=== PATIENT | female | born 1960 | race Caucasian/White ===

== ENCOUNTER 2016-08-27 19:27 | Inpatient (IN) | payer OTHER ==
[~2016-08-27] VITALS: Ht 154.9 cm; Wt 59.1 kg
[2016-08-27] MEDS ORDERED: VIT D PO (19:47)
[2016-08-27] MEDS ORDERED: HYDR200T3 PO (19:47)
[2016-08-27] MEDS ORDERED: FOLI1TAB2 PO (19:47)
[2016-08-27] MEDS ORDERED: LISI-542 PO (19:47)
[2016-08-27] MEDS ORDERED: OMEP40CA2 PO (19:47)
[2016-08-27] MEDS ORDERED: HUMI40KI SC (19:47)
[2016-08-27] MEDS ORDERED: METH2.5TA PO (19:47)
[2016-08-27] MEDS ORDERED: CALCIUM PO (19:47)
[2016-08-27] MEDS ORDERED: HYDR12CA PO (19:47)
[2016-08-27] MEDS ORDERED: MORPHINE 4 MG/ML 1ML SYRINGE IV ONE (20:15)
--- NOTE | 2016-08-27 20:27 | REP ---
Clinical: Trauma . Findings: Age-related changes are appreciated. The ventricles and sulci are symmetric. Almeida-white differentiation is maintained. There is no evidence for acute intracranial hemorrhage, mass/mass effect, pathology or infarction. No extra-axial fluid collection. Calvarium is intact. Near complete opacification of the ethmoid sinuses along with fluid level in the right maxillary sinus and sphenoid sinuses. Frontal sinuses and mastoid air cells are clear. There is a supraorbital/frontal scalp hematoma. Impression: Left supraorbital hematoma. Sinus opacification is nonspecific. Age related changes. No acute intracranial hemorrhage, infarction, or mass/mass effect. Signed by Marcos Cruz MD 08/27/2016 08:18 P
--- NOTE | 2016-08-27 20:37 | REP ---
Clinical: Trauma. Technique: AP, lateral, bilateral oblique views of the left wrist. Findings: There is a comminuted Nova's fracture of the distal radial metaphysis along with ulnar styloid fracture and overlying soft tissue swelling. Underlying osteopenia and degenerative changes noted. Impression: Comminuted Nova's fracture of the distal radius with ulnar styloid fracture and overlying soft tissue swelling. Signed by Marcos Cruz MD 08/27/2016 08:28 P
[2016-08-27] MEDS ORDERED: LIDOCAINE 1% MDV 20ML VIAL As Ordered ONE (21:47)
[2016-08-27] MEDS ORDERED: CALCTAB41 PO (23:12)
--- NOTE | 2016-08-28 00:30 | REPUSA ---
CLINICAL HISTORY: Pain. TECHNIQUE: Multiple axial CT images were obtained without IV contrast material. MPR coronal and sagit george sequences are obtained. COMMENTS: Heterogeneous osteopenia of visualized bones. Acute comminuted displaced intra-articular fracture of the distal radial metaphysis. Associated anter ior/palmar displacement and angulation. Acute displaced fracture of the ulna styloid process. Acute mildly displaced fracture of the most posterior/dorsal aspect of the lunate. Widening of the scapholunate space suggestive of injury of the scapholunate ligament. Diffuse soft tissue edema and swelling. IMPRESSION: Osteopenia. Displaced fracture of the ulna, radius and lunate. Thank you for your kind referral of this patient.
[2016-08-28 00:36] LABS: BASO % 0.3 % (0.0-1.0); EOS # 0.2 K/mm3 (0.0-0.50); EOS % 1.7 % (0.0-3.0); LARGE UNSTAINED CELL # 0.3 K/mm3 (0.0-0.4); LARGE UNSTAINED CELL % 2.8 % (0.0-4.0); LYMPH # 1.9 K/mm3 (1.5-4.5); LYMPH % 20.4 % (24.0-44.0); MEAN CORPUSCULAR HEMOGLOBIN 34.4 pg (27.0-33.0); MEAN CORPUSCULAR HGB CONC 34.7 g/dl (32.0-36.5); MONO # 0.5 K/mm3 (0.0-0.8); MONO % 4.9 % (0.0-5.0); NEUTROPHILS # 6.5 K/mm3 (1.8-7.7); NEUTROPHILS % 69.9 % (36.0-66.0); PLATELET COUNT, AUTOMATED 346 k/mm3 (150-450); RED CELL DISTRIBUTION WIDTH 12.1 % (11.5-14.5); WHITE BLOOD COUNT 9.3 K/mm3 (4.0-10.0)
[2016-08-28 00:50] LABS: ANION GAP 9 MEQ/L (8-16); BLOOD UREA NITROGEN 8 MG/DL (7-18); CARBON DIOXIDE LEVEL 26 MEQ/L (21-32); CHLORIDE LEVEL 101 MEQ/L (98-107); CREATININE FOR GFR 0.57 MG/DL (0.55-1.02); GLOMERULAR FILTRATION RATE > 60.0 (>51); GLUCOSE, FASTING 91 MG/DL (70-105); POTASSIUM SERUM 3.8 MEQ/L (3.5-5.1); SODIUM LEVEL 136 MEQ/L (136-145)
[2016-08-28 01:00] VITALS: O2SAT 98
[2016-08-28 01:29] VITALS: BP 139/65
[2016-08-28 06:00] VITALS: BP 145/87
--- NOTE | 2016-08-28 06:26 | CR ---
DATE OF CONSULTATION: 08/27/2016 PRIMARY CARE PROVIDER: Valerie Hopper in [place], [place]. CONSULTING PHYSICIAN: Dr. Costa from orthopedics. REASON FOR CONSULTATION: Preoperative optimization prior to surgery. HISTORY OF PRESENT ILLNESS: The patient is a 56-year-old female with past medical history significant for rheumatoid arthritis, hypertension, discoid lupus, and osteoporosis. She goes to a primary care provider in [place], [place]. The patient presented to the emergency room after she had a ground-level fall. She was dog sitting and walking the dog when the dog started running pulling the leash in the opposite direction. The patient ended up falling with outstretched hands. In the emergency room, the patient underwent a wrist x-ray, which showed comminuted Nova fracture of the distal radius and ulnar styloid fracture with some soft tissue swelling. A head CT was ordered, showed left orbital hematoma, no acute intracranial hemorrhage, infarct or mass effect. CT of her extremities showed displaced fracture of the ulnar radius and lunate. Admission was done by orthopedic surgeon with a consultation for preoperative optimization. At this time, the patient denies any chest pain, shortness of breath. Denies any nausea, vomiting. Denies any fevers or chills. Denies any headaches or dizziness. Only complaining of pain in her left arm. The patient stated that she normally is able to take three flights of stairs before having to stop and rest. She can walk up to [address] REVIEW OF SYSTEMS: 12-point review of systems was obtained all of which is negative except for those mentioned above. PAST MEDICAL HISTORY: Significant for rheumatoid arthritis, hypertension, discoid lupus, osteoporosis. PAST SURGICAL HISTORY: Significant for appendectomy, cholecystectomy. ALLERGIES: To PENICILLIN. MEDICATIONS: Include: - calcium/vitamin D two tablets by mouth daily - folic acid 1 mg by mouth daily - Humira every 2 weeks on Monday - hydrochlorothiazide 12.5 mg daily - hydroxychloroquine 200 mg by mouth daily with lunch - lisinopril 5 mg daily - methotrexate 10 mg weekly on Mondays - omeprazole 40 mg by mouth daily SOCIAL HISTORY: The patient smokes half a pack per day for the past 40 years. Drinks occasionally. Lives at home with her . FAMILY HISTORY: Noncontributory. PHYSICAL FINDINGS: Vital signs: On admission, temperature 100.8, pulse 76, respiratory rate 20, blood pressure is 108/58, pulse oximetry 98% on room air. HEENT: Pupils equal, round, reactive. The patient has a left suborbital hematoma. Neck: Supple. No jugular venous distention (JVD). Lungs: Clear to auscultation (CTA) bilaterally. Abdomen: Soft, nontender, nondistended. Extremities: The patient has a left displaced fracture of the ulnar radius and lunate, as well as left comminuted Nova fracture of the distal radius and ulnar styloid fracture. Head CT was negative. LABORATORY DATA: WBC is 9.3, hemoglobin 14.6, hematocrit 42, platelet count 346. Sodium 136, potassium 3.8, chloride 101, BUN 8, creatinine 0.57, fasting glucose 91. IMAGING STUDIES: As above. ASSESSMENT AND PLAN: 1. Left displaced fracture of the ulna and radius lunate and the left comminuted Nova fracture of the distal radius. The patient was seen by orthopedic surgery , Dr. Costa. He will take the patient to the operating room (OR) in the morning. She is to be nothing by mouth after midnight. Pain is currently controlled. We will put the patient on continuous pulse oximetry and monitor respiratory status. The patient is active, able to walk up to 30 minutes and take three flights of stairs. She has no known heart disease or obvious lung disease. The patient, however, is a smoker, smokes half a pack per day for 40 years. At this time, the patient is optimized for surgery. She is not requiring any oxygen at this time saturating 98% on room air. 2. Suborbital hematoma secondary to ground-level fall. 3. History of rheumatoid arthritis. 4. History of discoid lupus. The patient follows up with rheumatology in [place], [place]. 5. History of hypertension. We will hold the patient's home medications at this time since the patient is currently nothing by mouth. 6. Deep venous thrombosis (DVT) prophylaxis. Sequential compression devices (SCDs) while in bed. [facility]
[2016-08-28] MEDS ORDERED: PERC5TAB6 PO (07:09)
--- NOTE | 2016-08-28 08:08 | HPE ---
DATE OF ADMISSION: 08/27/2016 CHIEF COMPLAINT: Left wrist pain and deformity status post fall. HISTORY OF PRESENT ILLNESS: Shortly prior to admission, patient was pulled by a dog that she was watching and fell onto her left wrist and also struck her left side of her head. Denies any loss of consciousness. Denies any mental status changes. She did present promptly to the emergency room, primarily due to the left wrist pain and deformity. She has no other complaints at this time. PAST MEDICAL HISTORY: Significant for: Osteoporosis. Rheumatoid arthritis. Discoid lupus. Gastroesophageal reflux disease (GERD). Hypertension. PAST SURGICAL HISTORY: Appendectomy. Cholecystectomy. CURRENT MEDICATIONS: - calcium with vitamin D - folic acid - Gayla - hydrochlorothiazide - hydroxychloroquine - lisinopril - methotrexate - omeprazole ALLERGIES: She is not sure, she believes it is PENICILLIN. REVIEW OF SYSTEMS: Denies any fevers, chills, nausea, vomiting. Denies any chest pain or shortness of breath. PHYSICAL EXAMINATION: On examination, she is awake, alert and oriented times three, a well appearing female in no acute distress. Head is normocephalic. There is a small contusion on the left side of the forehead with local minimal swelling and ecchymosis. Otherwise, had is normocephalic, atraumatic and the extraocular muscles are intact. Cranial nerves grossly intact, mental status is normal. Cardiovascular regular rate and rhythm. Pulmonary no increased work of breathing. Abdomen is soft, nontender, nondistended. On focused examination of the left wrist there is swelling and deformity about the left distal radius. There is some superficial abrasion on the dorsal ulnar aspect distally. She has 2+ radial pulse. Full intact sensory and motor function into the hand and less than 2 seconds capillary refill on all of her fingertips. The ipsilateral hand, forearm, elbow and arm is grossly atraumatic. Initial x-rays and subsequent post reduction x-rays and post reduction CT scan show a comminuted displaced volar Nova's type fracture of the distal radius with a small associated ulna styloid fracture. Additionally, there is a small minimally displaced dorsal avulsion type fracture of the lunate with subtle widening of the scapholunate interval. Age related changes are also appreciated. ASSESSMENT: Unstable left distal radius fracture as above. PLAN: Using sterile technique, a closed reduction using a hematoma block was attempted, but I was unable to hold longitudinal tension on the fracture given its unstable pattern and as such I had a discussion with the patient about treatment options and ultimately she elected to be admitted and to plan to go forward with open reduction internal fixation (ORIF) versus closed reduction and external fixation tomorrow. Post fixation will evaluate for SL instability and if needed may stabilize the SL articulation. She did eat shortly prior to admission. Post reduction she remains fully neurovascularly intact to include the median nerve and she is comfortable in her splint. All of her questions were answered and she did sign the surgical consent in my presence. BRIAN
[2016-08-28] MEDS ORDERED: CLINDAMYCIN 600 MG in APPROPRIATE DILUENT 1 EA IV ONE (08:15)
--- NOTE | 2016-08-28 08:22 | REP ---
Clinical: Status post reduction. Technique: Portable AP and lateral views of the left wrist. Findings: Comminuted Nova's fracture noted. Further evaluation is limited due to overlying cast material. Impression: Comminuted Nova's fracture. Signed by Marcos Cruz MD 08/28/2016 08:15 A
--- NOTE | 2016-08-28 08:24 | REP ---
Clinical: Status post reduction. Technique: Portable AP and lateral views of the left wrist. Findings: Comminuted Nova's fracture noted. Further evaluation is limited due to overlying cast material. Impression: Comminuted Nova's fracture. Signed by Marcos Cruz MD 08/28/2016 08:16 A
[2016-08-28 10:00] VITALS: O2SAT 97
--- NOTE | 2016-08-28 11:50 | IPN ---
DATE OF SERVICE: 08/28/2016 A 56-year-old female seen at bedside. No overnight issues reported. She is resting comfortably. When I ask her about the incident of causing her to fall to fracture her arm, she laughs and informs that she felt that her dogs are somewhat clumsy. At any rate, she denies chest pain, shortness of breath, cough. No nausea or vomiting. OBJECTIVE: Temperature is 99.1, pulse 86, respiratory rate 16, blood pressure (BP) 145/87, SpO2 is 95% on room air. HEENT: Unremarkable. Lungs: Clear. Heart: Regular rate and rhythm. Abdomen: Soft. Extremities: No edema. No calf tenderness. LABORATORY DATA: White count 9.3, hemoglobin is 14.6, platelets 346,000. Sodium 136, potassium 3.8, chloride 101, bicarbonate 26, anion gap is 9, BUN is 8, creatinine is 0.57, glucose 91. ASSESSMENT AND PLAN: 1. Status post mechanical fall resulting in fracture with displacement of the left ulna and radius, as well as lunate. Managed by orthopedics, as well as pain management and physical therapy. Anticoagulation, physical therapy. 2. Left eye suborbital hematoma secondary to mechanical fall onto the ground. She has no visual deficits. No headache. 3. History of rheumatoid arthritis, stable. 4. History of discoid lupus, follows with rheumatology in [place], [place]. 5. Hypertension, stable on current medications. 6. Deep venous thrombosis (DVT) prophylaxis. Thromboembolic deterrents (TEDs) and sequentials. DISPOSITION: The patient does appear to be stable and medically optimized for surgery. She remains nothing by mouth and anticipated for possible orthopedic surgery. Will continue to follow along for medical management. [facility]
[2016-08-28] MEDS ORDERED: BUPIVACAINE HCL 0.5% 30 ML VIAL As Ordered ONE (12:12)
[2016-08-28] MEDS ORDERED: CLINDAMYCIN 600 MG/50 ML PREMIX BAG As Ordered ONE (12:12)
[2016-08-28] MEDS ORDERED: LIDOCAINE 2% INJ 100 MG/5 ML SDV (FOR ANES.) As Ordered ONE (12:20)
[2016-08-28] MEDS ORDERED: MIDAZOLAM INJ 2 MG/2 ML VIAL (J2250) As Ordered ONE (12:20)
[2016-08-28] MEDS ORDERED: PHENYLephrine HCL 500 MCG/5 ML (100MCG/ML) SYRINGE (J2370) As Ordered ONE (12:20)
[2016-08-28] MEDS ORDERED: PROPOFOL 200 MG/20 ML VIAL As Ordered ONE (12:20)
[2016-08-28] MEDS ORDERED: fentaNYL 100 MCG/2 ML INJECTION (J3010) As Ordered ONE (12:20)
[2016-08-28] MEDS ORDERED: KETOROLAC 60 MG/2 ML VIAL (J1885) As Ordered ONE (12:37)
[2016-08-28] MEDS ORDERED: dexameTHASONE 4 MG/ML 1ML VIAL (J1100) As Ordered ONE (12:37)
[2016-08-28] MEDS ORDERED: ONDANSETRON 4MG/2ML VIAL (J2405) As Ordered ONE (12:37)
[2016-08-28] MEDS ORDERED: HYDROmorphone HCL 2 MG/ML 1ML VIAL (J1170) As Ordered ONE (12:57)
[2016-08-28] MEDS: LR 1,000 ML IV SCH ×2 (13:49→14:58)
--- NOTE | 2016-08-28 14:11 | REP ---
Clinical: Status post open reduction and fixation. Technique: Intraoperative fluoroscopic images. Findings: Multiple intraoperative fluoroscopic images demonstrate the patient to be status post open reduction and fixation for distal radial fracture. Orthopedic hardware is in satisfactory position and appropriate alignment is appreciated. Total fluoroscopic time 53 seconds. Impression: Status post open reduction and fixation for distal radial fracture. Signed by Marcos Cruz MD 08/28/2016 02:02 P
[2016-08-28] MEDS ORDERED: ONDANSETRON 4MG/2ML VIAL (J2405) IV PRN (14:15)
[2016-08-28] MEDS ORDERED: fentaNYL 100 MCG/2 ML INJECTION (J3010) IV PRN (14:15)
[2016-08-28] MEDS ORDERED: PERCOCET 5MG/325MG TAB PO PRN (14:15)
[2016-08-28 16:00] VITALS: BP 177/71
--- NOTE | 2016-08-29 09:11 | RO ---
DATE OF PROCEDURE: 08/28/2016 PREPROCEDURE DIAGNOSIS: Comminuted displaced left distal radius and ulna styloid fracture. POSTPROCEDURE DIAGNOSIS: Comminuted displaced left distal radius and ulna styloid fracture. PROCEDURE PERFORMED: Left distal radius open reduction, internal fixation (ORIF). PRIMARY SURGEON: Dr. Ricardo Costa CLAIMS COORDINATOR: NANO Cat ANESTHESIA: General. ESTIMATED BLOOD LOSS: Approximately 20 mL. IMPLANTS: Synthes distal radius locking plate and screws. SPECIMENS REMOVED: None. BLOOD ADMINISTERED: None. COMPLICATIONS: None. DESCRIPTION OF PROCEDURE: The patient was identified in the preoperative holding area by name, medical record number, and date of . Surgical site was marked in consultation with the patient, and she was evaluated by anesthesia. When she was ready, she was brought back to the operating room suite on the [facility] and transferred to the operating room (OR) table. At this point, general anesthesia was induced without complication. The left upper extremity was thoroughly prepped and draped in the usual fashion. Prior to beginning the procedure, a final time-out was performed and all in the room agreed. She was given intravenous (IV) antibiotics prior to incision. I began the procedure by exsanguinating the left upper extremity with the Esmarch tourniquet, inflating the left upper arm tourniquet to 250 mmHg. I next confirmed the displaced volar distal radius fracture, which was significantly shortened. I next made a typical approach through the flexor carpi radialis tendon, dissecting down through the skin and subcutaneous fat, identified the FCR tendon, moving it aside and dissecting down to the floor of that tendon. Next, I bluntly dissected and moved the flexor pollicus longus muscle aside, identifying the pronator quadratus muscle, which was elevated in an L-shaped fashion off the distal radius. Next, I directly visualized the fracture site and performed a closed reduction using the plate, appropriately sized Synthes distal radius locking plate to aid the reduction. It was secured proximally onto the shaft and next distally secured using a K wire. At this point, I confirmed a satisfactory reduction and placement of the hardware. Following this, using the locking screw guide, the distal locking screws were placed and sized appropriately and drilled, and confirmed at this point after placement of all the screws in the distal radius, a satisfactory maintenance of reduction and position of all hardware. The second shaft screw was next placed with satisfactory purchase and fixation was confirmed by direct visualization and multiple fluoroscopic views, including views directly through the joint that the fracture was well reduced and the hardware was well placed. Overall satisfactory distal radius open reduction, internal fixation. At this point, the stability of the proximal carpal row was felt to be sufficient. Given the magnitude of her injury, I elected to go ahead and irrigate and perform a layered closure. She was next placed in a well-padded volar splint. The tourniquet was deflated. Brisk return of capillary refill to all of her digits was appreciated. I did give a small amount of local anesthetic into the wound bed itself prior to closure. The patient was brought out of anesthesia without complications, transferred to the post-anesthesia care unit in stable condition. Postoperative plan is that she will be discharged to home today to followup with orthopedics in 8 to 10 days or earlier as needed.
--- NOTE | 2016-09-01 14:24 | REP ---
Clinical: Closed reduction. Technique: Intraoperative fluoroscopic imaging. Findings: Two intraoperative images demonstrate fracture of the distal radial metaphysis with palmar angulation. Final image demonstrates overlying cast material. Fluoroscopic time 14 seconds. Impression: Status post closed reduction for Nova's fracture of the distal radius. Signed by Marcos Cruz MD 08/28/2016 08:21 A
--- NOTE | 2016-09-01 20:36 | DSES ---
DATE OF ADMISSION: 08/27/2016 DATE OF DISCHARGE: 08/28/2016 ATTENDING PHYSICIAN: Ricardo Costa MD ADMITTING DIAGNOSIS: Comminuted displaced left distal radius and ulnar styloid fracture. OTHER DIAGNOSES: 1. Rheumatoid arthritis. 2. Discoid lupus. 3. Hypertension. 4. Osteoporosis. DISCHARGE DIAGNOSIS: Comminuted displaced left distal radius and ulnar styloid fracture status post open reduction internal fixation of the distal radius fracture. HISTORY OF PRESENT ILLNESS: Patient is a 56-year-old female that sustained a mechanical fall. She fell on her outstretched hand and sustained a left comminuted, displaced distal radius and ulnar styloid fracture. She consented for an open reduction internal fixation of this fracture with Dr. Costa. OPERATION PERFORMED: Left distal radius open reduction internal fixation. HOSPITAL COURSE: The patient underwent a left distal radius open reduction internal fixation under general anesthesia which was uneventful. She was stable upon discharge and will resume her preoperative medications and diet. She was discharged on oral pain medications. She will followup in our office in approximately 1 week for reevaluation. She is encouraged to contact our office sooner if there is any increased pain, drainage, bleeding, redness, numbness or tingling in her left arm, fever greater than 101 degrees, any problems with her cast, or any other concerns. Please see her medical record for additional details. BRIAN
== END 2016-08-28 16:20 | disposition home or self-care (01) | DRG 512 ==
LOC: M ED 20:14 → M ED INP 23:58 → M MS5PR 08-28 01:00
PROC: 0PSJ04Z Reposition Left Radius with Internal Fixation Device, Open Approach (ICD-10-PCS; principal; 2016-08-28 10:00)
DX: S52.542A Smith's fracture of left radius, initial encounter for closed fracture (principal); S52.612A Displaced fracture of left ulna styloid process, initial encounter for closed fracture; S62.122A Displaced fracture of lunate [semilunar], left wrist, initial encounter for closed fracture; S00.83XA Contusion of other part of head, initial encounter; M06.9 Rheumatoid arthritis, unspecified; M81.0 Age-related osteoporosis without current pathological fracture; L93.0 Discoid lupus erythematosus; K21.9 Gastro-esophageal reflux disease without esophagitis; I10 Essential (primary) hypertension; W18.00XA Striking against unspecified object with subsequent fall, initial encounter; Y93.K1 Activity, walking an animal; Y92.89 Other specified places as the place of occurrence of the external cause; F17.210 Nicotine dependence, cigarettes, uncomplicated; Z88.0 Allergy status to penicillin; Z79.899 Other long term (current) drug therapy